=== PATIENT | male | born 1975 | race Caucasian/White ===

== ENCOUNTER 2023-02-23 15:17 | Emergency (ER) | payer SELFPAY ==
[2023-02-23 15:20] VITALS: BP 138/91; PULSE 106; RESP 18; TEMP 36.7; O2SAT 97; BMI 36.0
--- NOTE | 2023-02-23 15:36 | ECG_ITS ---
[facility] Test Date: 2023-02-23 Pat Name: JACQUES CABRERA Department: Room: - Gender: Male Hand Icer: : 1975 Requested By: Order Number: [id number] Reading MD: MEHRAN PATEL Measurements Intervals [place] Rate: 95 P: 39 NV: 162 QRS: 46 QRSD: 90 T: 68 QT: 350 QTc: 403 Interpretive Statements 1100 Sinus rhythm 7300 Indeterminate axis Non-Specific T wave inversion in aVL 9120 atypical ECG No previous ECG available for comparison Electronically Signed On 02-26-2023 6:23:39 EST by MEHRAN PATEL
--- NOTE | 2023-02-23 15:38 | ED.CHESTPAI1 ---
HPI - Chest Pain General Chief Complaint: Chest Pain Stated Complaint: CHEST PAIN Time Seen by Provider: 02/23/23 15:19 Source: patient Mode of arrival: walk-in Limitations: no limitations History of Present Illness HPI narrative: patient is a 47-year-old male who presents the emergency department for the evaluation of chest pain and headache that have been intermittently present for the last three weeks. Patient states he moved from [place] four months ago, he was being prescribed blood pressure and diabetes medications states he left them all in [place] and has not been on them for several months. He is regular smoker. He states today while he was making lunch approximately four hours ago, he developed pain in the left anterior chest with radiation to the left lateral chest. He states he is short of breath. He states he has had an associated headache located on the right forehead into the right side of the head and neck that has been coming and going for three weeks as well. He states when the chest pain becomes more severe he feels the headache. He has had no visual changes, vomiting, diarrhea, cough or congestion. He denies peripheral edema. He has no history of cardiac disease that he is aware of. 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 Risk Factors Coronary artery disease risk factors: diabetes, smoking history and hypertension Related Data Allergies Allergy/AdvReac Type Severity Reaction Status Date / Time No Known Drug Allergies Allergy Verified 02/23/23 15:26 Review of Systems ROS Constitutional Denies: fever or chills Ears, nose, mouth, and throat Denies: throat pain Cardiovascular Reports: chest pain Respiratory Reports: shortness of breath; Denies: cough Gastrointestinal Denies: nausea or vomiting Musculoskeletal Reports: neck pain; Denies: back pain Integumentary/Breast Denies: rash Neurological Reports: headache PFSH PFS Social History Smoking status: Current every day smoker Exam Narrative Exam Narrative: Gen.: Awake, alert, in no distress Head: Normocephalic, atraumatic ENT: Moist mucous membranes Respiratory: No respiratory distress, lungs clear bilaterally Cardio: Regular rate and rhythm Gastrointestinal: Abdomen is soft, nondistended and nontender to palpation Extremities: Moves extremities equally, no pedal edema Psych: Normal mood and affect Neuro: No focal neuro deficit Skin: Warm, dry, intact Constitutional Vital Signs, click to edit/add: Last Vital Signs Temp 98.0 F 02/23/23 15:20 Pulse 106 H 02/23/23 15:20 Resp 18 02/23/23 15:20 BP 138/91 02/23/23 15:20 Pulse Ox 99 02/23/23 15:41 O2 Del Method Room Air 02/23/23 15:41 Course Vital Signs Vital signs: Vital Signs Temperature 98.0 F 02/23/23 15:20 Pulse Rate 106 H 02/23/23 15:20 Respiratory Rate 18 02/23/23 15:20 Blood Pressure 138/91 02/23/23 15:20 Pulse Oximetry 97 02/23/23 15:20 Oxygen Delivery Method Room Air 02/23/23 15:20 Temperature 98.0 F 02/23/23 15:20 Pulse Rate 106 H 02/23/23 15:20 Respiratory Rate 18 02/23/23 15:20 Blood Pressure 138/91 02/23/23 15:20 Pulse Oximetry 99 02/23/23 15:41 Oxygen Delivery Method Room Air 02/23/23 15:41 MDM - Chest Pain MDM Narrative Medical decision making narrative: patient with no EKG changes and stable vital signs in the Emergency Room. Labs including d-dimer and two troponins are within normal limits. Heart score is a three. Patient's symptoms have been present intermittently for three weeks, CT of the brain, chest x-ray are unremarkable. Patient was given aspirin and nitroglycerin in the Emergency Room as well as Reglan, Benadryl, Norflex for headache. He was reevaluated by attending physician prior to discharge, it was recommended that the patient be evaluated by a primary care provider locally as he may need a stress test. He is in no distress on reevaluation and stable for discharge. Return to the Emergency Room if symptoms change or worsen Medical Records Data Attestation: I reviewed the patient's medical records. Lab Data Attestation: I reviewed the patient's lab results. Labs: Lab Results 02/23/23 02/23/23 Range/Units 15:30 16:48 WBC 8.4 (4.0-11.0) 10^3/uL RBC 5.68 (4.70-6.10) 10^6/uL Hgb 16.9 (14.0-18.0) g/dL Hct 48.6 (42.0-54.0) % MCV 85.6 (80.0-94.0) fL MCH 29.8 (25.9-34.0) pg MCHC 34.8 (29.9-35.2) g/dL RDW 12.3 (11.0-15.0) % Plt Count 205 (150-450) 10^3/uL MPV 10.2 (9.5-13.5) fL Neut % (Auto) 58.4 (43.0-75.0) % Lymph % (Auto) 31.3 (20.5-60.0) % Collier % (Auto) 6.2 (1.7-12.0) % Eos % (Auto) 2.8 (0.9-7.0) % Baso % (Auto) 0.7 (0.2-2.0) % Neut # (Auto) 4.9 (1.4-6.5) 10^3/uL Lymph # (Auto) 2.6 (1.2-3.8) 10^3/uL Collier # (Auto) 0.5 (0.3-0.8) 10^3/uL Eos # (Auto) 0.2 (0.0-0.7) 10^3/uL Baso # (Auto) 0.1 (0.0-0.1) 10^3/uL Abs Immat Gran (auto) 0.05 H (0.00-0.03) 10^3/uL Imm/Tot Granulo (auto) 0.6 H (0.0-0.5) % PT 9.9 (9.0-11.6) sec INR 0.93 APTT 31.3 (22.3-36.2) sec D-Dimer <0.19 (<=0.59) mg/L FEU Sodium 134 L (136-145) mmol/L Potassium 4.6 (3.5-5.1) mmol/L Chloride 101 (98-107) mmol/L Carbon Dioxide 24.2 (21.0-32.0) mmol/L Anion Gap 13.4 BUN 19.0 H (7.0-18.0) mg/dL Creatinine 0.85 (0.70-1.30) mg/dL Est GFR ( Amer) >60 (>=60) Est GFR (Non-Af Amer) >60 (>=60) BUN/Creatinine Ratio 22.4 Glucose 233 H (74-106) mg/dL Calcium 8.8 (8.5-10.1) mg/dL Total Bilirubin 0.5 (0.2-1.0) mg/dL AST 26 (15-37) U/L ALT 34 (16-63) U/L Alkaline Phosphatase 126 H (46-116) U/L Troponin I High Sens 4.8 4.4 (4.0-76.1) pg/mL NT-Pro-B Natriuret Pep 16.0 (<=450.0) pg/mL Total Protein 7.8 (6.4-8.2) g/dL Albumin 3.7 (3.4-5.0) g/dL Globulin 4.1 g/dL Albumin/Globulin Ratio 0.9 Imaging Data Chest x-ray: Attestation: I have reviewed the pertinent imaging results. Radiologist's impression: Procedure: XR chest 1V XR chest 1V, 02/23/2023 4:16 PM EST, OH001 INDICATION: Chest pain COMPARISON: None TECHNIQUE: Frontal view of the chest obtained. FINDINGS: The heart is normal in size. The aorta and mediastinum appear unremarkable. The pulmonary vasculature is normal. The lungs are clear. There is no evidence of pneumothorax or pleural effusion. The osseous structures appear intact. IMPRESSION: No active pulmonary process. Electronically authenticated by: KAL AU Date: 02/23/2023 16:32 CT scan - head: Attestation: I have reviewed the pertinent imaging results. Radiologist's impression: Procedure: CT head/brain wo con CT HEAD WITHOUT CONTRAST. INDICATION: Headache. COMPARISON: None available for comparison TECHNIQUE: Axial CT head images from the skull base to the vertex without IV contrast were acquired. Coronal and sagittal reformats were also obtained. FINDINGS: Somewhat limited evaluation due to motion. EXTRA-AXIAL SPACE: Age-appropriate ventricles. No acute extra-axial collection. No extra-axial mass. No midline shift. CEREBRUM: No CT evidence of acute large territorial cortical infarct, hemorrhage or mass effect. CEREBELLUM: No CT evidence of acute infarct, hemorrhage or mass effect. BRAINSTEM: No focal abnormality. No CT evidence of acute infarct, hemorrhage or mass effect. EXTRACRANIAL STRUCTURES. The paranasal sinuses are clear. Mastoid air cells are clear. Orbits are unremarkable. No discrete pituitary mass. Intact calvarium. IMPRESSION: No acute intracranial abnormality. Electronically authenticated by: RICH NICOLE Date: 02/23/2023 16:40 ECG Data Attestation: I personally reviewed and interpreted this ECG as follows: (normal sinus rhythm at a rate of ninety-five, no acute ST elevation or ectopy. EKG reviewed by attending physician) ECG interpretation date: 02/23/23 ECG interpretation time: 15:41 Heart Score History: Slightly/Non-Suspicious ECG: Normal Age: >45-<65 years Risk Factors: >3 Risk Factors/ HX of CAD:2 Troponin: <Normal Limit Total Heart Score Recommendations & Risks:: 3 Discharge Plan Discharge Chief Complaint: Chest Pain Clinical Impression: Headache, Chest pain Patient Disposition: Home, Self-Care Time of Disposition Decision: 17:17 Condition: Good Print Language: Bangladeshi Instructions: Chest Pain (ED), General Headache (ED) Stand Alone Forms: Portal Instructions Referrals: Physician,Non-Staff, MD [Primary Care Provider] - 1 week
[2023-02-23 15:41] VITALS: O2SAT 99
[2023-02-23 15:42] LABS: Basophils Absolute Auto 0.1 10^3/uL (0.0-0.1); Basophils Percent Auto 0.7 % (0.2-2.0); Eosinophils Absolute Auto 0.2 10^3/uL (0.0-0.7); Eosinophils Percent Auto 2.8 % (0.9-7.0); Hematocrit 48.6 % (42.0-54.0); Hemoglobin 16.9 g/dL (14.0-18.0); Immature Granulocytes Abs Auto 0.05 10^3/uL (0.00-0.03); Immature Granulocytes Pct Auto 0.6 % (0.0-0.5); Lymphocytes Absolute Auto 2.6 10^3/uL (1.2-3.8); Lymphocytes Percent Auto 31.3 % (20.5-60.0); Mean Corpuscular HGB Conc 34.8 g/dL (29.9-35.2); Mean Corpuscular Hemoglobin 29.8 pg (25.9-34.0); Mean Corpuscular Volume 85.6 fL (80.0-94.0); Mean Platelet Volume 10.2 fL (9.5-13.5); Monocytes Absolute Auto 0.5 10^3/uL (0.3-0.8); Monocytes Percent Auto 6.2 % (1.7-12.0); Neutrophils Absolute Auto 4.9 10^3/uL (1.4-6.5); Neutrophils Percent Auto 58.4 % (43.0-75.0); Platelet Count 205 10^3/uL (150-450); Red Blood Count 5.68 10^6/uL (4.70-6.10); Red Cell Distribution Width 12.3 % (11.0-15.0); White Blood Count 8.4 10^3/uL (4.0-11.0)
[2023-02-23] MEDS: ASPIRIN 81 MG TAB.CHEW 162 MG PO (15:45)
[2023-02-23] MEDS: NITROGLYCERIN 0.4 MG BOTTLE PO (15:47)
[2023-02-23] MEDS: DIPHENHYDRAMINE HCL 50 MG/ML (1ML) VIAL 25 MG IV (15:47)
[2023-02-23] MEDS: METOCLOPRAMIDE HCL 10 MG/2 ML VIAL INJ (15:47)
[2023-02-23] MEDS: ORPHENADRINE 60 MG/ 2 ML VIAL IV (15:48)
[2023-02-23 15:53] LABS: Alanine Aminotransferase 34 U/L (16-63); Albumin Globulin Ratio 0.9; Albumin Level 3.7 g/dL (3.4-5.0); Alkaline Phosphatase 126 U/L (46-116); Anion Gap 13.4; Aspartate Amino Transferase 26 U/L (15-37); BUN Creatinine Ratio 22.4; Bilirubin Total 0.5 mg/dL (0.2-1.0); Calcium 8.8 mg/dL (8.5-10.1); Carbon Dioxide 24.2 mmol/L (21.0-32.0); Chloride 101 mmol/L (98-107); Estimated GFR (African America >60 (>=60); Estimated GFR (Non-African Ame >60 (>=60); Globulin 4.1 g/dL; Glucose 233 mg/dL (74-106); Potassium 4.6 mmol/L (3.5-5.1); Sodium 134 mmol/L (136-145); Total Protein 7.8 g/dL (6.4-8.2)
[2023-02-23 15:56] LABS: D Dimer <0.19 mg/L FEU (<=0.59); INR 0.93; Partial Thromboplastin Time 31.3 sec (22.3-36.2); Prothrombin Time 9.9 sec (9.0-11.6)
[2023-02-23 16:01] LABS: Troponin I High Sensitivity 4.8 pg/mL (4.0-76.1)
--- NOTE | 2023-02-23 16:22 | XR_ITS ---
The [place] [id number] Patient Name: JACQUES CABRERA MRN: [id number] date: 1975 Sex: M Assigned Patient Location: ER Current Patient Location: ED.MAIN Accession/Order Number: [id number] Exam Date: 02/23/2023 16:16 Report Date: 02/23/2023 16:32 At the request of: ERNIE REEVES Procedure: XR chest 1V XR chest 1V, 02/23/2023 4:16 PM EST, OH001 INDICATION: Chest pain COMPARISON: None TECHNIQUE: Frontal view of the chest obtained. FINDINGS: The heart is normal in size. The aorta and mediastinum appear unremarkable. The pulmonary vasculature is normal. The lungs are clear. There is no evidence of pneumothorax or pleural effusion. The osseous structures appear intact. XR/XR chest 1V IMPRESSION: No active pulmonary process. Electronically authenticated by: KAL AU Date: 02/23/2023 16:32
--- NOTE | 2023-02-23 16:22 | CT_ITS ---
The [address] [address] Patient Name: JACQUES CABRERA MRN: [id number] date: 1975 Sex: M Assigned Patient Location: ER Current Patient Location: ER Accession/Order Number: [id number] Exam Date: 02/23/2023 16:16 Report Date: 02/23/2023 16:40 At the request of: ERNIE REEVES Procedure: CT head/brain wo con CT HEAD WITHOUT CONTRAST. INDICATION: Headache. COMPARISON: None available for comparison TECHNIQUE: Axial CT head images from the skull base to the vertex without IV contrast were acquired. Coronal and sagittal reformats were also obtained. FINDINGS: Somewhat limited evaluation due to motion. EXTRA-AXIAL SPACE: Age-appropriate ventricles. No acute extra-axial collection. No extra-axial mass. No midline shift. CEREBRUM: No CT evidence of acute large territorial cortical infarct, hemorrhage or mass effect. CEREBELLUM: No CT evidence of acute infarct, hemorrhage or mass effect. BRAINSTEM: No focal abnormality. No CT evidence of acute infarct, hemorrhage or mass effect. EXTRACRANIAL STRUCTURES. The paranasal sinuses are clear. Mastoid air cells are clear. Orbits are unremarkable. No discrete pituitary mass. Intact calvarium. CT/CT head/brain wo con IMPRESSION: No acute intracranial abnormality. Electronically authenticated by: RICH NICOLE Date: 02/23/2023 16:40
[2023-02-23 17:14] LABS: Troponin I High Sensitivity 4.4 pg/mL (4.0-76.1)
== END 2023-02-23 17:40 | disposition home or self-care (01) ==
PROVIDERS: Physician Assistant; Emergency Provider Emergency Medicine
DX: R07.9 Chest pain, unspecified (principal); R51.9 Headache, unspecified; I10 Essential (primary) hypertension; E11.9 Type 2 diabetes mellitus without complications; F17.210 Nicotine dependence, cigarettes, uncomplicated; R06.02 Shortness of breath
CPT/HCPCS: 36415; 70450; 71045; 80053; 83880; 84484; 85025; 85378; 85610; 85730; 93005; 96372; 96374; 96375; 99285